=== PATIENT | female | born 1965 | race Caucasian/White ===

== ENCOUNTER 2020-07-03 14:01 | Emergency (ER) | payer MEDICAID, SELFPAY ==
[2020-07-03 14:05] VITALS: BP 136/81; PULSE 85; RESP 20; TEMP 36.7; O2SAT 96; BMI 37.1
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
[2020-07-03 15:53] VITALS: BP 113/76; PULSE 85; RESP 14; O2SAT 95
== END 2020-07-03 15:54 | disposition home or self-care (01) ==
PROVIDERS: Emergency Provider Nurse Practitioner Family; PCP Nurse Practitioner Family
DX: S39.012A Strain of muscle, fascia and tendon of lower back, initial encounter (principal); V89.2XXA Person injured in unspecified motor-vehicle accident, traffic, initial encounter
CPT/HCPCS: 12345; 99281